=== PATIENT | male | born 1945 | race Caucasian/White ===

== ENCOUNTER 2023-02-12 09:28 | Emergency (ER) | payer MEDICARE ==
[2023-02-12] MEDS ORDERED: Methocarbamol 500 MG TAB PO SCH (10:45)
[2023-02-12] MEDS ORDERED: Lidocaine 4% Patch TD SCH (10:45)
== END 2023-02-12 12:54 | disposition home or self-care (01) ==
LOC: CSHERS 09:28
DX: M54.50 Low back pain, unspecified (principal); I10 Essential (primary) hypertension
CPT/HCPCS: 72131